=== PATIENT | male | born 1990 | race Caucasian/White ===

== ENCOUNTER 2020-04-11 11:12 | Emergency (ER) | payer BC ==
[~2020-04-11] VITALS: Ht 190.5 cm; Wt 215.5 kg
[2020-04-11] MEDS ORDERED: IBU400 MG PO (11:25)
[2020-04-11] MEDS ORDERED: KEFLEX500 M1 PO (12:27)
[2020-04-11] MEDS ORDERED: MUPIROCIN22 GM TOP (12:27)
[2020-04-11 12:47] VITALS: BP 168/85
== END 2020-04-11 12:47 | disposition home or self-care (01) ==
LOC: M.ERS 11:12
DX: S90.861A Insect bite (nonvenomous), right foot, initial encounter (principal); L08.9 Local infection of the skin and subcutaneous tissue, unspecified; I10 Essential (primary) hypertension; W57.XXXA Bitten or stung by nonvenomous insect and other nonvenomous arthropods, initial encounter; Y93.89 Activity, other specified; Y92.89 Other specified places as the place of occurrence of the external cause; Y99.8 Other external cause status

== ENCOUNTER 2020-05-01 07:05 | Emergency (ER) | payer OTHER, BC ==
[~2020-05-01] VITALS: Ht 190.5 cm; Wt 215.5 kg
[~2020-05-01 07:05] MED LIST: IBU400 MG PO; KEFLEX500 M1 PO; MUPIROCIN22 GM TOP
[2020-05-01 07:35] VITALS: BP 163/84
[2020-05-01] MEDS ORDERED: BACTRIM DS TAB1 EAC1 PO (07:40)
[2020-05-01] MEDS ORDERED: DIPHENHIST50 MG PO (07:40)
== END 2020-05-01 07:35 | disposition home or self-care (01) ==
LOC: M.ERS 07:05
DX: L03.811 Cellulitis of head [any part, except face] (principal); I10 Essential (primary) hypertension; Z90.49 Acquired absence of other specified parts of digestive tract